=== PATIENT | female | born 1935 | race Two or more races ===

== ENCOUNTER 2022-02-06 12:11 | Inpatient (IN) | payer OTHER, MEDICAID ==
[~2022-02-06] VITALS: Ht 152.4 cm; Wt 58.0 kg
[2022-02-06 12:56] LABS: Basophils # (auto) 0.1 10 ^3/uL (0-0.2); Eosinophils # (auto) 0.2 10 ^3/uL (0-0.8); Hemoglobin 13.4 g/dL (12.2-16.2); Lymphocytes # (auto) 2.5 10 ^3/uL (0.4-5.4); Mean Corpuscular Hemoglobin 32.1 pg (28.0-32.0); Mean Corpuscular Hgb Conc. 33.5 g/dL (32.0-36.0); Mean Corpuscular Volume 95.8 fL (80.0-100.0); Monocytes # (auto) 0.4 10 ^3/uL (0-1.3); Monocytes % (auto) 5.3 % (0.0-12.0); Neutrophils # (auto) 4.9 10 ^3/uL (1.6-8.6); Neutrophils % (auto) 60.7 % (37.0-80.0); Nucleated Red Blood Cells % 0.1 %; Red Blood Cells 4.18 10^6/uL (4.0-5.20); Red Cell Distribution Width 13.8 % (11.8-14.3); White Blood Cell 8.1 10^3/uL (4.4-10.8)
[2022-02-06 13:14] LABS: Albumin 3.6 g/dL (3.4-5.0); Calcium 9.2 mg/dL (8.5-10.1); Potassium 4.2 mmol/L (3.5-5.1)
[2022-02-06 13:18] LABS: BUN/Creatinine Ratio 18.3; Bilirubin, Total 0.7 mg/dL (0.2-1.0); Total Protein 7.7 g/dL (6.4-8.2)
[2022-02-06] MEDS ORDERED: ENOXAPARIN SOD 60 MG/0.6 ML SYRINGE SC ONE (13:45)
[2022-02-06] MEDS ORDERED: ASPirin 325 MG TAB PO ONE (16:45)
[2022-02-06] MEDS ORDERED: HYDROcodone-ACET 5/325MG TAB PO PRN (19:00)
[2022-02-06] MEDS ORDERED: ACETAMINOPHEN 325 MG TAB PO PRN (19:00)
[2022-02-06] MEDS ORDERED: MORPHINE SULFATE INJ 2 MG/ml SYRG IV PRN ×2 (19:00)
[2022-02-06] MEDS ORDERED: NITROGLYCERIN 0.4 MG SL TAB SL PRN (19:00)
[2022-02-06] MEDS ORDERED: METOPROLOL TARTRATE 50 MG TAB PO ONE (19:15)
[2022-02-06] MEDS ORDERED: HCTZ 25 MG TAB PO ONE (19:15)
[2022-02-06 19:42] LABS: Cholesterol 230 mg/dL (< 200); HDL Cholesterol 62 mg/dL (40-59); LDL Cholesterol 144 mg/dL (< 100); Triglycerides 193 mg/dL (< 150)
[2022-02-06] MEDS: ATORVASTATIN 20 MG TAB PO SCH (22:23)
[2022-02-06] MEDS: hydrALAZINE HCL 20 MG/ML VL IV PRN (22:23)
[2022-02-07] MEDS: hydrALAZINE HCL 20 MG/ML VL IV PRN ×2 (04:58→21:32)
[2022-02-07 05:00] VITALS: BP 168/55
[2022-02-07] MEDS ORDERED: AMLO-489 PO (05:30)
[2022-02-07] MEDS ORDERED: SERT50TA19 PO (05:31)
[2022-02-07 08:30] VITALS: BP 150/61
[2022-02-07 09:00] VITALS: BP 150/61
[2022-02-07 09:21] LABS: Basophils # (auto) 0 10 ^3/uL (0-0.2); Basophils % (auto) 0.6 % (0.0-2.0); Eosinophils # (auto) 0.1 10 ^3/uL (0-0.8); Eosinophils % (auto) 0.7 % (0.0-7.0); Hematocrit 38.1 % (36.0-46.0); Lymphocytes # (auto) 1.9 10 ^3/uL (0.4-5.4); Lymphocytes % (auto) 22.5 % (10.0-50.0); Mean Corpuscular Hemoglobin 32.3 pg (28.0-32.0); Mean Corpuscular Hgb Conc. 34.1 g/dL (32.0-36.0); Mean Corpuscular Volume 94.8 fL (80.0-100.0); Monocytes # (auto) 0.5 10 ^3/uL (0-1.3); Monocytes % (auto) 5.7 % (0.0-12.0); Neutrophils # (auto) 5.9 10 ^3/uL (1.6-8.6); Neutrophils % (auto) 70.5 % (37.0-80.0); Red Blood Cells 4.02 10^6/uL (4.0-5.20); Red Cell Distribution Width 13.6 % (11.8-14.3); White Blood Cell 8.4 10^3/uL (4.4-10.8)
[2022-02-07 09:27] LABS: Albumin 3.2 g/dL (3.4-5.0); Calcium 9.3 mg/dL (8.5-10.1); Potassium 3.8 mmol/L (3.5-5.1)
[2022-02-07 09:32] LABS: BUN/Creatinine Ratio 19.2; Bilirubin, Total 0.9 mg/dL (0.2-1.0); Total Protein 6.8 g/dL (6.4-8.2)
[2022-02-07] MEDS ORDERED: ENOXAPARIN SOD 40 MG/0.4 ML SYRINGE SC SCH (10:00)
[2022-02-07] MEDS ORDERED: AMLO5CAP40 PO (10:54)
[2022-02-07] MEDS: ASPirin 81 mg TAB PO SCH (10:55)
[2022-02-07 13:00] VITALS: BP 155/62
[2022-02-07] MEDS ORDERED: amLODIPine BESYLATE 5 MG TAB PO ONE (14:00)
[2022-02-07] MEDS ORDERED: SERTRALINE HCL 50 MG TAB PO ONE (14:00)
[2022-02-07 17:00] VITALS: BP 152/59
[2022-02-07 21:24] LABS: Urine Bacteria FEW /hpf (None Seen); Urine WBC 1 /hpf (0 - 5)
[2022-02-07 21:27] LABS: Urine Blood 1+ /uL (Negative)
[2022-02-07] MEDS: ATORVASTATIN 20 MG TAB PO SCH (21:31)
[2022-02-07 22:00] VITALS: BP 172/62
[2022-02-07] MEDS ORDERED: BENAZEPRIL HCL 10 MG TAB PO SCH (22:00)
[2022-02-08 05:00] VITALS: BP 154/58
[2022-02-08 05:31] VITALS: BP 129/59
[2022-02-08 08:00] VITALS: BP 137/58
[2022-02-08] MEDS ORDERED: ADENOSINE 49 MG in GIVE UN-DILUTED 0 ML IV ONE (08:15)
[2022-02-08 09:00] VITALS: BP 137/58
[2022-02-08] MEDS ORDERED: BENAZEPRIL HCL 10 MG TAB PO SCH (10:00)
[2022-02-08] MEDS ORDERED: amLODIPine BESYLATE 5 MG TAB PO SCH (10:00)
[2022-02-08] MEDS ORDERED: SERTRALINE HCL 50 MG TAB PO SCH (10:00)
[2022-02-08] MEDS: ASPirin 81 mg TAB PO SCH (10:10)
[2022-02-08 11:43] VITALS: BP 137/58
[2022-02-08 13:00] VITALS: BP 134/74
== END 2022-02-08 14:36 | disposition home or self-care (01) | DRG 282 ==
LOC: ER 12:11 → TELE 18:59 → TELE-WESTW 02-07 03:17
PROVIDERS: ADMIT Registered Nurse; ATTEND Internal Medicine
DX: I16.0 Hypertensive urgency (principal); I21.A1 Myocardial infarction type 2; F41.9 Anxiety disorder, unspecified; G43.909 Migraine, unspecified, not intractable, without status migrainosus; F32.A Depression, unspecified; I10 Essential (primary) hypertension; Z20.822 Contact with and (suspected) exposure to COVID-19; E78.5 Hyperlipidemia, unspecified
CPT/HCPCS: 36415; 70450; 71045; 78452; 80053; 80061; 81001; 83036; 84443; 84484; 85025; 87426; 93005; 93017; 93306; 96372; G0378; J0153

== ENCOUNTER 2022-08-10 20:00 | Inpatient (IN) | payer OTHER, MEDICAID ==
[~2022-08-10] VITALS: Ht 160 cm; Wt 56.4 kg
[~2022-08-10 20:00] MED LIST: AMLO5CAP40 PO; SERT50TA19 PO
[2022-08-10] MEDS ORDERED: hydrALAZINE HCL 20 MG/ML VL IV ONE (20:45)
[2022-08-10] MEDS ORDERED: SODIUM CHLORIDE 0.9% 1,000 ML IV ONE (20:45)
[2022-08-10 21:23] LABS: Basophils # (auto) 0.1 10 ^3/uL (0-0.2); Basophils % (auto) 0.8 % (0.0-2.0); Eosinophils # (auto) 0.1 10 ^3/uL (0-0.8); Eosinophils % (auto) 0.9 % (0.0-7.0); Hematocrit 39.2 % (36.0-46.0); Hemoglobin 13.3 g/dL (12.2-16.2); Lymphocytes # (auto) 1.2 10 ^3/uL (0.4-5.4); Lymphocytes % (auto) 15.8 % (10.0-50.0); Mean Corpuscular Hemoglobin 32.7 pg (28.0-32.0); Mean Corpuscular Volume 96.1 fL (80.0-100.0); Monocytes # (auto) 0.7 10 ^3/uL (0-1.3); Monocytes % (auto) 9.2 % (0.0-12.0); Neutrophils # (auto) 5.3 10 ^3/uL (1.6-8.6); Neutrophils % (auto) 73.3 % (37.0-80.0); Nucleated Red Blood Cells % 0.1 %; Red Blood Cells 4.08 10^6/uL (4.0-5.20); White Blood Cell 7.3 10^3/uL (4.4-10.8)
[2022-08-10 21:33] LABS: Urine Bacteria NONE SEEN /hpf (None Seen); Urine Blood 2+ /uL (Negative); Urine Hyaline Cast FEW /lpf (0 - 2); Urine Mucus FEW (None Seen); Urine Specific Gravity 1.025 (1.001-1.035); Urine WBC 21 /hpf (0 - 5)
[2022-08-10 21:40] LABS: Albumin 3.7 g/dL (3.4-5.0); Calcium 9.5 mg/dL (8.5-10.1); Potassium 3.9 mmol/L (3.5-5.1)
[2022-08-10 21:44] LABS: Bilirubin, Total 0.4 mg/dL (0.2-1.0); Total Protein 8.1 g/dL (6.4-8.2)
[2022-08-10 21:49] LABS: BUN/Creatinine Ratio 15.5 (10.0-20.0)
[2022-08-10] MEDS ORDERED: IOHEXOL 350 MG/ML 100ML IJ ONE (22:10)
[2022-08-11] MEDS ORDERED: MORPHINE SULFATE INJ 2 MG/ml SYRG IV PRN (04:15)
[2022-08-11] MEDS ORDERED: cefTRIAXone 1GM/50ML D5W 50 ML IV ONE (04:15)
[2022-08-11] MEDS ORDERED: ONDANSETRON HCL 4 MG/2 ML VIAL IV PRN (04:15)
[2022-08-11] MEDS ORDERED: NITROGLYCERIN 0.4 MG SL TAB SL PRN (04:15)
[2022-08-11] MEDS ORDERED: HYDROcodone-ACET 5/325MG TAB PO PRN (04:15)
[2022-08-11] MEDS ORDERED: DOCUSATE SOD 100 MG CAP PO PRN (04:15)
[2022-08-11] MEDS: SODIUM CHLORIDE 0.9% 1,000 ML IV SCH ×2 (04:38→15:31)
[2022-08-11 10:52] VITALS: BP 142/58
[2022-08-11 12:00] VITALS: BP 130/61
[2022-08-11] MEDS: cefTRIAXone 1GM/50ML D5W 50 ML IV SCH (12:00)
[2022-08-11] MEDS ORDERED: SIMV-13 PO (12:29)
[2022-08-11] MEDS ORDERED: GABA300C10 PO (12:29)
[2022-08-11] MEDS ORDERED: ASPI-543 PO (12:29)
[2022-08-11] MEDS ORDERED: CHOL20007 PO (12:29)
[2022-08-11] MEDS: ASPirin 81 mg TAB PO SCH (14:26)
[2022-08-11] MEDS: amLODIPine BESYLATE 5 MG TAB PO SCH (14:27)
[2022-08-11 16:00] VITALS: BP 157/67
[2022-08-11] MEDS: ACETAMINOPHEN 325 MG TAB PO PRN (19:15)
[2022-08-11 21:50] VITALS: BP 133/98
[2022-08-11] MEDS: GABAPENTIN 300 MG CAP PO SCH (22:11)
[2022-08-11] MEDS: ATORVASTATIN 20 MG TAB PO SCH (22:11)
[2022-08-12 05:22] VITALS: BP 163/75
[2022-08-12] MEDS: hydrALAZINE HCL 20 MG/ML VL IV PRN ×2 (05:27→21:39)
[2022-08-12 06:43] LABS: Basophils # (auto) 0 10 ^3/uL (0-0.2); Basophils % (auto) 0.5 % (0.0-2.0); Eosinophils # (auto) 0.1 10 ^3/uL (0-0.8); Eosinophils % (auto) 1.2 % (0.0-7.0); Hematocrit 40.6 % (36.0-46.0); Hemoglobin 13.6 g/dL (12.2-16.2); Lymphocytes # (auto) 1.8 10 ^3/uL (0.4-5.4); Lymphocytes % (auto) 31.6 % (10.0-50.0); Mean Corpuscular Hemoglobin 32.1 pg (28.0-32.0); Mean Corpuscular Hgb Conc. 33.4 g/dL (32.0-36.0); Monocytes # (auto) 0.7 10 ^3/uL (0-1.3); Monocytes % (auto) 11.6 % (0.0-12.0); Neutrophils # (auto) 3.2 10 ^3/uL (1.6-8.6); Neutrophils % (auto) 55.1 % (37.0-80.0); Nucleated Red Blood Cells % 0.2 %; Red Blood Cells 4.23 10^6/uL (4.0-5.20); Red Cell Distribution Width 13.3 % (11.8-14.3); White Blood Cell 5.7 10^3/uL (4.4-10.8)
[2022-08-12 09:00] VITALS: BP 132/64
[2022-08-12] MEDS: ACETAMINOPHEN 325 MG TAB PO PRN (09:10)
[2022-08-12 09:25] LABS: Albumin 3.1 g/dL (3.4-5.0); BUN/Creatinine Ratio 18.2 (10.0-20.0); Potassium 3.8 mmol/L (3.5-5.1)
[2022-08-12 09:28] LABS: Bilirubin, Total 0.3 mg/dL (0.2-1.0); Total Protein 6.9 g/dL (6.4-8.2)
[2022-08-12] MEDS: GABAPENTIN 300 MG CAP PO SCH ×2 (10:19→21:38)
[2022-08-12] MEDS: ASPirin 81 mg TAB PO SCH (10:19)
[2022-08-12] MEDS: SERTRALINE HCL 50 MG TAB PO SCH (10:21)
[2022-08-12] MEDS: CHOLECALCIFEROL (VITD3) 1,000UNIT=25mCg TAB PO SCH (10:21)
[2022-08-12] MEDS: amLODIPine BESYLATE 5 MG TAB PO SCH (10:21)
[2022-08-12] MEDS: cefTRIAXone 1GM/50ML D5W 50 ML IV SCH (10:22)
[2022-08-12 13:00] VITALS: BP 133/61
[2022-08-12] MEDS: SODIUM CHLORIDE 0.9% 1,000 ML IV SCH (13:47)
[2022-08-12 17:00] VITALS: BP 135/54
[2022-08-12] MEDS: ATORVASTATIN 20 MG TAB PO SCH (21:38)
[2022-08-12 22:00] VITALS: BP 148/60
[2022-08-13] MEDS: SODIUM CHLORIDE 0.9% 1,000 ML IV SCH (02:14)
[2022-08-13 04:35] VITALS: BP 154/67
[2022-08-13] MEDS: hydrALAZINE HCL 20 MG/ML VL IV PRN (06:20)
[2022-08-13] MEDS: cefTRIAXone 1GM/50ML D5W 50 ML IV SCH (08:58)
[2022-08-13 09:00] VITALS: BP 154/60
[2022-08-13] MEDS: ACETAMINOPHEN 325 MG TAB PO PRN (09:00)
[2022-08-13] MEDS: SERTRALINE HCL 50 MG TAB PO SCH (09:00)
[2022-08-13] MEDS: ASPirin 81 mg TAB PO SCH (09:00)
[2022-08-13] MEDS: GABAPENTIN 300 MG CAP PO SCH (09:00)
[2022-08-13] MEDS: CHOLECALCIFEROL (VITD3) 1,000UNIT=25mCg TAB PO SCH (09:02)
[2022-08-13] MEDS: amLODIPine BESYLATE 5 MG TAB PO SCH (09:07)
[2022-08-13] MEDS ORDERED: BENAZEPRIL HCL 10 MG TAB PO SCH (10:00)
[2022-08-13] MEDS ORDERED: BENA40TA PO (11:57)
[2022-08-13 12:59] VITALS: BP 130/61
[2022-08-13 13:00] VITALS: BP 148/54
== END 2022-08-13 14:45 | disposition home or self-care (01) | DRG 77 ==
LOC: ER 20:00 → TELE 08-11 04:07 → TELE-WESTW 08-11 10:01
PROVIDERS: ADMIT Nurse Practitioner Family; ATTEND Family Medicine
DX: I67.4 Hypertensive encephalopathy (principal); I21.A1 Myocardial infarction type 2; N39.0 Urinary tract infection, site not specified; I16.0 Hypertensive urgency; I10 Essential (primary) hypertension; E78.00 Pure hypercholesterolemia, unspecified
CPT/HCPCS: 36415; 71045; 80053; 81001; 83690; 84484; 85025; 87081; 87086; 93306; 96361; 96365; 96375; 99291; G0378; J0696

== ENCOUNTER 2022-10-28 14:07 | Emergency (ER) | payer OTHER, MEDICAID ==
[~2022-10-28] VITALS: Ht 152.4 cm; Wt 55.0 kg
[~2022-10-28 14:07] MED LIST changes: +AMLO5CAP2 PO; -AMLO5CAP40 PO; +ASPI-543 PO; +BENA40TA PO; +CHOL20007 PO; +GABA-1250 PO; +SERT-206 PO; -SERT50TA19 PO; +SIMV40TA18 PO
[2022-10-28] MEDS ORDERED: SERT50TA PO (14:44)
[2022-10-28 14:54] VITALS: BP 155/51; PULSE 58; RESP 18; TEMP 98.2; O2SAT 97
== END 2022-10-28 14:57 | disposition home or self-care (01) ==
LOC: ER 14:07
DX: F41.9 Anxiety disorder, unspecified (principal); F32.9 Major depressive disorder, single episode, unspecified; I10 Essential (primary) hypertension; E78.5 Hyperlipidemia, unspecified; Z76.0 Encounter for issue of repeat prescription; Z79.82 Long term (current) use of aspirin; Z79.899 Other long term (current) drug therapy

== ENCOUNTER → 2023-06-03 | Outpatient (CLI) | payer OTHER, MEDICAID ==
[~2023-06-03] MED LIST changes: +SERT50TA PO
[2023-06-03 11:06] LABS: Basophils # (auto) 0.1 10 ^3/uL (0-0.2); Basophils % (auto) 0.8 % (0.0-2.0); Eosinophils # (auto) 0.3 10 ^3/uL (0-0.8); Eosinophils % (auto) 4.1 % (0.0-7.0); Hematocrit 36.1 % (36.0-46.0); Hemoglobin 11.8 g/dL (12.2-16.2); Lymphocytes # (auto) 2.2 10 ^3/uL (0.4-5.4); Lymphocytes % (auto) 31.6 % (10.0-50.0); Mean Corpuscular Hemoglobin 31.5 pg (28.0-32.0); Mean Corpuscular Hgb Conc. 32.7 g/dL (32.0-36.0); Mean Corpuscular Volume 96.3 fL (80.0-100.0); Monocytes # (auto) 0.4 10 ^3/uL (0-1.3); Monocytes % (auto) 5.9 % (0.0-12.0); Neutrophils # (auto) 3.9 10 ^3/uL (1.6-8.6); Neutrophils % (auto) 57.6 % (37.0-80.0); Red Blood Cells 3.74 10^6/uL (4.0-5.20); Red Cell Distribution Width 13.9 % (11.8-14.3); White Blood Cell 6.8 10^3/uL (4.4-10.8)
[2023-06-03 11:32] LABS: Urine Bacteria FEW /hpf (None Seen); Urine Blood TRACE /uL (Negative); Urine Budding Yeast FEW /hpf (None Seen); Urine Clarity HAZY (Clear); Urine Color Yellow (Yellow); Urine Hyaline Cast MANY /lpf (0 - 2); Urine Mucus FEW (None Seen); Urine Protein, UAD 2+ (Negative); Urine Specific Gravity 1.022 (1.001-1.035); Urine Urobilinogen Normal (Negative); Urine WBC 64 /hpf (0 - 5); Urine WBC Clumps PRESENT /hpf (None Seen); Urine pH 6.5 (5.0-8.0)
[2023-06-03 12:20] LABS: Alanine Aminotransferase 10 U/L (7-40); Albumin 4.1 g/dL (3.2-4.8); Alkaline Phosphatase 82 U/L (46-116); Anion Gap 6 (5-15); Aspartate Aminotransferase 23 U/L (13-40); BUN/Creatinine Ratio 13.1 (10.0-20.0); Blood Urea Nitrogen 13 mg/dL (9-23); Calcium 9.7 mg/dL (8.5-10.1); Carbon Dioxide 29 mmol/L (20-30); Chloride 108 mmol/L (98-107); Glucose 92 mg/dL (74-106); Potassium 4.4 mmol/L (3.5-5.1); Sodium 143 mmol/L (136-145)
[2023-06-03 12:21] LABS: Bilirubin, Total 0.5 mg/dL (0.2-1.0); Total Protein 7.6 g/dL (5.7-8.2)
== END | disposition home or self-care (01) ==
LOC: LAB 10:55
PROVIDERS: ATTEND Internal Medicine
DX: I10 Essential (primary) hypertension (principal); E78.5 Hyperlipidemia, unspecified; G30.9 Alzheimer's disease, unspecified
CPT/HCPCS: 36415; 80053; 81001; 84443; 85025

== ENCOUNTER → 2023-09-09 | Outpatient (CLI) | payer OTHER, MEDICAID ==
[2023-09-09 11:33] LABS: Basophils # (auto) 0 10 ^3/uL (0-0.2); Basophils % (auto) 0.7 % (0.0-2.0); Eosinophils # (auto) 0.2 10 ^3/uL (0-0.8); Eosinophils % (auto) 2.1 % (0.0-7.0); Hematocrit 36.3 % (36.0-46.0); Hemoglobin 11.8 g/dL (12.2-16.2); Lymphocytes # (auto) 2.3 10 ^3/uL (0.4-5.4); Lymphocytes % (auto) 31.8 % (10.0-50.0); Mean Corpuscular Hemoglobin 31.3 pg (28.0-32.0); Mean Corpuscular Hgb Conc. 32.6 g/dL (32.0-36.0); Monocytes # (auto) 0.6 10 ^3/uL (0-1.3); Monocytes % (auto) 7.8 % (0.0-12.0); Neutrophils # (auto) 4.2 10 ^3/uL (1.6-8.6); Neutrophils % (auto) 57.6 % (37.0-80.0); Red Blood Cells 3.78 10^6/uL (4.0-5.20); White Blood Cell 7.3 10^3/uL (4.4-10.8)
[2023-09-09 12:28] LABS: Chloride 108 mmol/L (98-107); Potassium 4.4 mmol/L (3.5-5.1); Sodium 142 mmol/L (136-145)
[2023-09-09 12:29] LABS: Anion Gap 6 (5-15); Carbon Dioxide 28 mmol/L (20-30)
[2023-09-09 12:30] LABS: Calcium 9.8 mg/dL (8.7-10.4)
[2023-09-09 12:35] LABS: Blood Urea Nitrogen 17 mg/dL (9-23); Glucose 85 mg/dL (74-106)
== END | disposition home or self-care (01) ==
LOC: LAB 11:16
PROVIDERS: ATTEND Internal Medicine
DX: N18.30 Chronic kidney disease, stage 3 unspecified (principal); D63.1 Anemia in chronic kidney disease; N39.0 Urinary tract infection, site not specified
CPT/HCPCS: 36415; 80048; 82306; 85025

== ENCOUNTER → 2023-12-24 | Outpatient (CLI) | payer OTHER, MEDICAID ==
[2023-12-24 13:17] LABS: Chloride 107 mmol/L (98-107); Potassium 4.5 mmol/L (3.5-5.1); Sodium 139 mmol/L (136-145)
[2023-12-24 13:18] LABS: Anion Gap 4 (5-15); Calcium 9.9 mg/dL (8.7-10.4); Carbon Dioxide 28 mmol/L (20-30)
[2023-12-24 13:23] LABS: BUN/Creatinine Ratio 13.3 (10.0-20.0); Blood Urea Nitrogen 14 mg/dL (9-23); Glucose 91 mg/dL (74-106)
[2023-12-24 13:41] LABS: Folate (Folic Acid) 11.77 ng/mL (>5.38)
== END | disposition home or self-care (01) ==
LOC: LAB 12:40
PROVIDERS: ATTEND Internal Medicine
DX: N18.30 Chronic kidney disease, stage 3 unspecified (principal); D64.9 Anemia, unspecified
CPT/HCPCS: 36415; 80048; 82607; 82746